=== PATIENT | female | born 1980 | race Caucasian/White ===

== ENCOUNTER 2023-02-15 13:09 | Emergency (ER) | payer OTHER, SELFPAY ==
[2023-02-15 13:16] VITALS: BP 189/124; PULSE 118; RESP 20; TEMP 36.9; O2SAT 100
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
[2023-02-15 13:50] VITALS: BP 168/108
== END 2023-02-15 13:50 | disposition home or self-care (01) ==
PROVIDERS: Emergency Provider Nurse Practitioner Family
DX: L03.011 Cellulitis of right finger (principal); L03.012 Cellulitis of left finger; I73.00 Raynaud's syndrome without gangrene; M79.7 Fibromyalgia; M06.9 Rheumatoid arthritis, unspecified
CPT/HCPCS: 99213; G0463

== ENCOUNTER 2024-04-17 13:46 | Emergency (ER) | payer OTHER, SELFPAY ==
--- NOTE | ~2024-04-17 | XR_ITS ---
EXAMINATION: XR foot LT min 3V DATE: 04/17/2024 14:21 INDICATION: Left great toe contusion TECHNIQUE: Dorsoplantar, two oblique and lateral views of the left foot were obtained. COMPARISON: None. FINDINGS: 30 degrees hallux valgus. Alignment is otherwise normal. No fracture. There is flattening of the aixa cular surface at the head of the second metatarsal without underlying subarticular lucency or scleros is consistent with sequela of chronic osteonecrosis (Freiberg's infraction). Mild osteoarthritis at t he first metatarsophalangeal and a few tarsometatarsal and interphalangeal joints. There is a large j uxta articular erosion with corticated margins and overhanging edges at the lateral head of the fifth metatarsal with appearance suggestive of gout. Small Achilles and plantar calcaneal spurs. Additiona l tiny enthesopathic ossicle at the distal Achilles tendon. Soft tissues are unremarkable. IMPRESSION: 1. No acute osseous abnormality. 2. Chronic corticated erosion at the lateral head of the fifth metatarsal suspicious for gout. 3. Chronic osteonecrosis at the head of the second metatarsal. 4. Calcaneal enthesophytes and mild particular osteoarthritis in the mid and forefoot. Reviewed, dictated and finalized at location A. IMPRESSION: 1. No acute osseous abnormality. 2. Chronic corticated erosion at the lateral head of the fifth metatarsal suspi cious for gout. 3. Chronic osteonecrosis at the head of the second metatarsal. 4. Calcaneal enthesophytes and mild particular osteoarthritis in the mid and fo refoot.
[2024-04-17 13:58] VITALS: BP 188/95; PULSE 104; RESP 20; TEMP 36.2; O2SAT 100
--- NOTE | 2024-04-17 14:13 | ED.SKABFB ---
HPI - Skin/Abscess/Foreign Bdy General Chief complaint: Skin/Abscess/Foreign Body Stated complaint: Skin Sore Toe History of Present Illness HPI narrative: patient is a 44-year-old female, past medical history significant for fibromyalgia, Raynaud's disease, hypertension, tobacco dependency, presents to [facility] with left great toe bruising. She states that she fell into a Tote at the end of her bed approximately 10 days ago and hit the left posterior leg. She does not recall hitting her toe specifically however she did cut an ingrown toenail from that same toe 4 days prior to her fall and does recall hitting her toe repetitively as it was healing. Her tetanus vaccination is reported up-to-date. She is noncompliant with medications for hypertension as she states they make her feel worse rather than better. She denies any additional injuries or complaints today. Related Data Allergies Allergy/AdvReac Type Severity Reaction Status Date / Time No Known Allergies Allergy Verified 02/15/23 13:37 Review of Systems Musculoskeletal: Comments: Refer to HPI Integumentary/Breasts: Comments: refer to HPI Exam Const: General: healthy appearing, no acute distress and alert Nutritional Appearance: well nourished Orientation/consciousness: patient oriented x3 Limitations: no limitations Other: patient appears older than stated age HENMT: Head: normal to inspection Ears: external ears normal Mouth: Yes Normal oral and palatal mucosa present Teeth and gingiva: abnormal tooth and associated gingiva Throat: posterior oropharynx normal Other: poor dentition Eyes: Conjunctivae: conjunctivae normal Pupils: Equal, round and reactive pupils present EOM: EOMs intact bilaterally Neck: Neck: normal visual inspection Chest: Chest palpation & inspection: normal inspection of the chest Resp: Effort & Inspection: normal respiratory effort Auscultation: clear to auscultation bilaterally Cardio: Rate: regular rate Rhythm: regular rhythm Skin: Rashes: no rashes Other: patient's left great toe has an area of ecchymosis at the tip, the tibial side of the toenail plate has a healing wound without drainage or erythema, the entirety of the area of ecchymosis blanches quickly with palpation and then briskly returns with capillary refill less than 2 seconds, pt is mildly TTP over the 1st MT. No further ecchymosis noted. Distal PMS intact Neuro: General: patient oriented x3, moves all extremities, no meningeal signs, no focal motor deficits and CN's II-XI intact bilaterally Cranial nerves: Yes Nystagmus not present Speech: normal speech Gait exam (Neuro): Normal gait present Extrem: General: normal to inspection, no clubbing, cyanosis or edema and no pedal edema Course Course Emergency Course: patient's imaging results received and reviewed. The AP view shows what appears to be a nondisplaced fracture along the distal tuft of the left 1st toe. Radiologist does not disclose this injury dictation however there is chronic osteonecrosis /osteoarthritis of the MTP joints. plan to place patient in a postop shoe. Will treat empirically for possible cellulitis as patient has completed instrumentation at home and a nonsterile manner increasing her risk for cellulitis . Will discharge home with PCP follow-up in 7-10 days, sooner if healing concerns arise. Patient verbalized understanding and she is agreeable with discharge plan of care. Level of Care: Express Care Visit ([id number]) Vital Signs Vital signs: Vital Signs Temperature 36.2 C L 04/17/24 13:58 Pulse Rate 104 H 04/17/24 13:58 Respiratory Rate 04/17/24 13:58 Blood Pressure 188/95 H 04/17/24 13:58 Pulse Oximetry 100 04/17/24 13:58 Oxygen Delivery Room Air 04/17/24 13:58 Temperature 36.2 C L 04/17/24 13:58 Pulse Rate 104 H 04/17/24 13:58 Respiratory Rate 04/17/24 13:58 Blood Pressure 188/95 H 04/17/24 13:58 Pulse Oximetr
== END 2024-04-17 14:57 | disposition home or self-care (01) ==
PROVIDERS: Emergency Provider Nurse Practitioner Family
DX: S99.922A Unspecified injury of left foot, initial encounter (principal); X58.XXXA Exposure to other specified factors, initial encounter; M79.7 Fibromyalgia; I73.00 Raynaud's syndrome without gangrene; I10 Essential (primary) hypertension; F17.200 Nicotine dependence, unspecified, uncomplicated
CPT/HCPCS: 73630; 99213; G0463